=== PATIENT | female | born 2000 | race African-American/Black ===

== ENCOUNTER 2018-09-06 17:06 | Inpatient (IN) ==
[2018-09-06] MEDS ORDERED: MEPERIDINE 50 MG/1 ML VIAL IV PRN (17:22)
[2018-09-06] MEDS ORDERED: ONDANSETRON 4 MG/2 ML VIAL IV PRN (17:22)
[2018-09-06] MEDS: LACTATED RINGERS 1,000 ML IV SCH (17:35)
[2018-09-06 17:38] LABS: Basophils % 0.1 % (0.0-0.8); Eosinophils % 0.1 % (0.00-10.9); Hematocrit 33.1 VOL% (35.7-47.0); Hemoglobin 10.4 GM/DL (12.0-16.0); Immature Granulocytes % 0.5 %; Immature Granulocytes Absolute 0.08 #; Lymphocytes # 2.3 10*3/uL (1.4-4.0); Lymphocytes % 15.3 % (21.3-54.2); Mean Corpuscular HGB Conc 31.4 GM/DL (32-36); Mean Corpuscular Hemoglobin 29 PG (27-34); Mean Platelet Volume 10.6 FL (9.6-12.0); Monocytes # 0.7 10*3/uL (0.11-0.8); Monocytes % 4.5 % (1.7-12.7); Neutrophils # 11.8 10*3/uL (1.4-7.4); Neutrophils % 79.5 % (38.7-73.9); Platelet Count 272 T/CUMM (130-400); Red Blood Count 3.56 MC/CUMM (3.8-5.5); Red Cell Distribution Width 13.2 % (9.3-17.3); White Blood Count 14.9 T/CUMM (4-12)
[2018-09-06] MEDS ORDERED: diphenhydrAMINE 50 MG/1 ML VIAL IV PRN (19:36)
[2018-09-06] MEDS ORDERED: hydrOXYzine HCL 25 MG/1 ML VIAL IM PRN (19:36)
[2018-09-06] MEDS ORDERED: ePHEDrine 50 MG/ML AMP IV PRN (19:36)
[2018-09-06] MEDS ORDERED: FAMOTIDINE 20 MG/2 ML VIAL IV ONE (19:36)
[2018-09-06] MEDS ORDERED: NALOXONE 0.4 MG/ML VIAL IV PRN (19:36)
[2018-09-06] MEDS ORDERED: CITRIC ACID/SODIUM CITRATE 30 ML UDCUP PO ONE (19:37)
[2018-09-06] MEDS ORDERED: fentaNYL 2 MCG/ROPIV 0.2% EPID 100 ML EPIDURAL SCH (20:00)
[2018-09-07] MEDS ORDERED: AMPICILLIN INJ 2,000 MG in SODIUM CHLORIDE 0.9% 100 ML IV ONE (00:05)
[2018-09-07] MEDS: OXYTOCIN/LR 20 UNIT/1,000 ML BAG IV SCH ×2 (00:15→15:40)
[2018-09-07] MEDS: LACTATED RINGERS 1,000 ML IV SCH ×2 (00:45→07:37)
[2018-09-07] MEDS ORDERED: BUTORPHANOL 1 MG/ML VIAL IV PRN (03:35)
[2018-09-07] MEDS: AMPICILLIN INJ 1,000 MG in SODIUM CHLORIDE 0.9% 100 ML IV SCH ×2 (04:25→08:00)
[2018-09-07] MEDS ORDERED: CITRIC ACID/SODIUM CITRATE 30 ML UDCUP PO ONE (05:00)
[2018-09-07] MEDS ORDERED: FAMOTIDINE 20 MG/2 ML VIAL IV ONE (05:00)
[2018-09-07 06:33] LABS: Apearance,Urine CLEAR (Clear); Bacteria,Urine Occasional /HPF (Few); Bilirubin,Urine Negative (Negative); Blood, Urine Small mg/dL (Negative); Glucose,Urine (UA) Negative (Negative); Ketones,Urine 20 mg/dL (Negative); Mucus,Urine Occasional /LPF (Occasional); Nitrite,Urine Negative (Negative); Protein,Urine Negative; RBC,Urine 2 /HPF (0-4); Squamous Epithelial Cell,Urine Occasional /HPF (0-10); Urine Color Yellow (Yellow); Urine Specific Gravity 1.016 (1.001-1.035); WBC,Urine 1 /HPF (0-6)
[2018-09-07] MEDS ORDERED: miSOPROStol 200 MCG TABLET ONE (12:32)
[2018-09-07] MEDS ORDERED: CARBOPROST TROMETHAMINE 250 MCG/ML AMP IM ONE (12:33)
[2018-09-07] MEDS ORDERED: METHYLERGONOVINE 0.2 MG/1 ML AMP ONE (12:33)
[2018-09-07 14:15] LABS: Cord Arterial Blood HCO3 16.3 MMOL/L
[2018-09-07 14:18] LABS: Cord Venous Blood HCO3 20.7 MMOL/L; Cord Venous Blood PCO2 35.4 MMHG; Cord Venous Blood PO2 38.8
[2018-09-07] MEDS ORDERED: BENZOCAINE 20%/MENTHOL 0.5% SPRAY 56 GM CAN TOP PRN (17:57)
[2018-09-07] MEDS ORDERED: LANOLIN 50% CREAM 0.3 OZ TUBE TOP PRN (17:57)
[2018-09-07] MEDS ORDERED: BISACODYL 10 MG SUPP RECTAL PRN (17:57)
[2018-09-07] MEDS ORDERED: ACETAMINOPHEN 325 MG TABLET PO PRN (17:57)
[2018-09-07] MEDS ORDERED: HYDROCORTISONE 2.5% RECTAL CREAM 30 GM TUBE TOP PRN (17:57)
[2018-09-07] MEDS ORDERED: ACETAMINOPHEN/CODEINE 300-30 MG TABLET PO PRN (17:57)
[2018-09-07] MEDS ORDERED: oxyCODONE/ACETAMINOPHEN 5-325 MG TABLET PO PRN (17:57)
[2018-09-07] MEDS ORDERED: WITCH HAZEL PADS 100/JAR TOP PRN (17:57)
[2018-09-07] MEDS ORDERED: DIPH/TET/ACEL PERT BOOSTER VACCINE 0.5 ML VIAL IM ONE (17:57)
[2018-09-07] MEDS ORDERED: MEASLES/MUMPS/RUBELLA VACCINE 0.5 ML VIAL SUBCUT ONE (17:57)
[2018-09-07] MEDS ORDERED: RHO(D) IMMUNE GLOBULIN 300 MCG SYRINGE IM ONE (17:57)
[2018-09-07] MEDS: IBUPROFEN 800 MG TABLET PO PRN (18:20)
[2018-09-07] MEDS: DOCUSATE SODIUM 100 MG CAPSULE PO SCH (21:16)
[2018-09-07] MEDS: oxyCODONE/ACETAMINOPHEN 5-325 MG TABLET PO PRN (21:17)
[2018-09-08 06:28] LABS: Basophils # 0.1 10*3/uL (0.0-0.2); Basophils % 0.2 % (0.0-0.8); Eosinophils % 0.1 % (0.00-10.9); Hematocrit 28.8 VOL% (35.7-47.0); Hemoglobin 9.3 GM/DL (12.0-16.0); Immature Granulocytes % 0.9 %; Lymphocytes # 3.8 10*3/uL (1.4-4.0); Lymphocytes % 16.8 % (21.3-54.2); Mean Corpuscular HGB Conc 32.3 GM/DL (32-36); Mean Corpuscular Hemoglobin 30 PG (27-34); Mean Corpuscular Volume 93.5 FL (87-102); Mean Platelet Volume 11.1 FL (9.6-12.0); Monocytes # 2.2 10*3/uL (0.11-0.8); Monocytes % 9.6 % (1.7-12.7); Neutrophils # 16.4 10*3/uL (1.4-7.4); Neutrophils % 72.4 % (38.7-73.9); Platelet Count 221 T/CUMM (130-400); Red Blood Count 3.08 MC/CUMM (3.8-5.5); Red Cell Distribution Width 13.2 % (9.3-17.3); White Blood Count 22.7 T/CUMM (4-12)
[2018-09-08 06:50] LABS: Band Neutrophils 1 % (0-10); Eosinophils 1 % (0-10); Lymphocytes 11 % (20-55); Platelet Estimate Adequate; Segmented Neutrophils 78 % (50-85); Total Cells Counted 100
[2018-09-08 06:51] LABS: Hypochromasia 1+
[2018-09-08] MEDS ORDERED: INFLUENZA VIRUS VACCINE 0.5 ML SYRINGE IM ONE (09:00)
[2018-09-08] MEDS: DOCUSATE SODIUM 100 MG CAPSULE PO SCH ×2 (09:24→21:29)
[2018-09-08] MEDS: FERROUS SULFATE 325 MG TABLET PO SCH ×2 (09:25→21:29)
[2018-09-08] MEDS: IBUPROFEN 800 MG TABLET PO PRN (09:26)
[2018-09-08] MEDS ORDERED: RHO(D) IMMUNE GLOBULIN 300 MCG SYRINGE IM ONE (12:00)
[2018-09-09] MEDS: oxyCODONE/ACETAMINOPHEN 5-325 MG TABLET PO PRN (00:03)
[2018-09-09] MEDS: IBUPROFEN 800 MG TABLET PO PRN (00:03)
[2018-09-09 07:18] VITALS: BP 100/70
[2018-09-09] MEDS: DOCUSATE SODIUM 100 MG CAPSULE PO SCH (10:15)
[2018-09-09] MEDS: FERROUS SULFATE 325 MG TABLET PO SCH (10:17)
== END 2018-09-09 14:25 | disposition home or self-care (01) | DRG 560 ==
LOC: N.LDOUT 17:06 → N.LD 17:07 → N.OB 09-07 17:32
PROVIDERS: ADMIT Obstetrics & Gynecology; ATTEND Obstetrics & Gynecology